=== PATIENT | male | born 2000 | race Caucasian/White ===

== ENCOUNTER 2024-08-09 02:08 | Emergency (ER) | payer MEDICAID, SELFPAY ==
[2024-08-09 02:09] VITALS: BMI 28.8
[2024-08-09 02:34] VITALS: BP 141/89; PULSE 87; RESP 19; TEMP 37.1; O2SAT 97
--- NOTE | 2024-08-09 02:36 | PD.EDRME ---
Rapid Medical Screening Exam RME Arrival date/time: 08/09/24 02:08 24 year old male present to Ed for c/o of RUQ for 1 day I have greeted and performed a focused initial assessment of this patient. A comprehensive ED assessment and evaluation of the patient, analysis of all test results, and completion of the medical decision making process will be conducted by additional ED providers. Chief Complaint: Abdominal Pain Time Seen by Provider: 08/09/24 02:28 Vital signs: Vital Signs Temperature 98.7 F 08/09/24 02:34 Pulse Rate 87 08/09/24 02:34 Respiratory Rate 19 08/09/24 02:34 Blood Pressure 141/89 H 08/09/24 02:34 Pulse Oximetry (%) 97 08/09/24 02:34 Oxygen Delivery Method Room Air 08/09/24 02:34
[2024-08-09] MEDS: ONDANSETRON ODT 4 MG TABRAP PO (02:54)
[2024-08-09 03:03] LABS: Basophils % (Auto) 0 % (0-2.5); Eosinophils # (Auto) 0.2 Thou/mm3 (0.0-0.5); Eosinophils % (Auto) 2 % (0-10); Hemoglobin 15.4 g/dL (13.5-16.0); Immature Granulocytes % (Auto) 0 % (0-0); Immature Granulocytes Auto 0.03 Thou/mm3 (0.00-0.00); Lymphocytes # (Auto) 2.7 Thou/mm3 (1.0-4.8); Lymphocytes % (Auto) 40 % (10-50); Mean Corpuscular Hemoglobin 29.5 pg (25.0-35.0); Mean Corpuscular Volume 84 fL (80-100); Monocytes # (Auto) 0.6 Thou/mm3 (0.0-0.8); Monocytes % (Auto) 8 % (0-12); Neutrophils # (Auto) 3.4 Thou/mm3 (1.8-7.7); Neutrophils % (Auto) 50 % (37-80); Nucleated Red Blood Cell % 0 /100 WBC (0); Platelet Count 201 Thou/mm3 (140-440); RDW Standard Deviation 37.6 fL (35.1-43.9); Red Blood Count 5.22 Miln/mm3 (4.50-5.90); White Blood Count 6.9 Thou/mm3 (3.8-10.6)
[2024-08-09 03:21] LABS: Alanine Aminotransferase 23 U/L (10-49); Albumin, Serum 5.1 gm/dL (3.5-5.0); Albumin/Globulin Ratio 2.2 (1.2-2.2); Alkaline Phosphatase 77 U/L (46-116); Anion Gap 8 (7-16); Aspartate Amino Transferase 11 U/L (0-34); BUN/Creatinine Ratio 18 Ratio (12-20); Bilirubin,Total 0.4 mg/dL (0.3-1.2); Blood Urea Nitrogen 16 mg/dL (9-23); Calcium 10.3 mg/dL (8.3-10.6); Calcium (Corrected) 10.3 mg/dL (8.5-10.1); Carbon Dioxide 29.4 mMol/L (20.0-31.0); Chloride 105 mMol/L (98-107); Creatinine (Component) 0.9 mg/dL (0.6-1.3); Estimated Creatinine Clearance 137.5 mL/min (>60); Globulin 2.3 gm/dL (2.3-3.5); Glucose 115 mg/dL (74-106); Lipase 47 U/L (12-53); Osmolality,Calculated 285 (275-295); Potassium 4.1 mMol/L (3.4-5.1); Sodium 142 mMol/L (136-145); Total Protein 7.4 gm/dL (5.7-8.2); eGFR > 60 See Note
[2024-08-09] MEDS: MG HYD/AL HYD/SIME (Maalox Reg) SUSP 30 ML UDC PO (03:27)
[2024-08-09] MEDS: KETOROLAC INJ 60 MG/2 ML VIAL 30 MG IM (04:44)
--- NOTE | 2024-08-09 05:13 | EDNOTE_ITS ---
ED Abdominal Pain RME/HPI General Chief Complaint: Abdominal Pain Stated complaint: RIGHT UPPER ABDOMEN PAIN Time seen by provider: 08/09/24 02:28 Arrival date/time: 08/09/24 02:08 24 year old male present to emergency room with c/o of ruq pain tonight. denies any similar pain in the past. LOCATION: RUQ SEVERITY: Symptoms are described as being severe with limitations on activities of daily living QUALITY: Symptoms are described as being cramping CONTEXT: The patient is unable to identify any inciting events. DURATION/TIMING: The symptoms started approximately one day ago and have been waxing/waning but always present without ever completely resolving. ASSOCIATED SYMPTOMS: The patient is unable to identify any other associated symptoms. MODIFYING FACTORS: The patient is unable to identify any alleviating or aggravating symptoms. PERTINENT ROS: no fevers, no anorexia, no nausea or vomiting, no diarrhea, no ripping or tearing sensations, no syncope or presyncopal symptoms, denies trauma, denies genital pain REVIEW OF SYSTEMS: See History of Present Illness - with the exception of those mentioned in the history of present illness, all other systems reviewed and reported as negative GENERAL: In general the patient is awake, interactive, in an emergency department gurney. HEAD/EYES/EARS/NOSE/THROAT: normo-cephalic, atraumatic, mucus membranes are moist, anicteric, palpebral conjunctiva is pink, trachea is midline. CARDIOVASCULAR: regular rate and regular rhythm, no murmurs, heart sounds are not distant, strong pulses in all four extremities that are equal and symmetric bilateral upper and lower extremities, normal capillary refill. CHEST/PULMONARY: normal chest rise and fall, good air movement, clear to auscultation bilaterally, normal inspiratory to expiratory ratios without evidence of respiratory distress. NECK: No midline/Paraspinal tenderness, no step off ROM/Strenght intact No Kernig and bruzinski sign. No trauma ABDOMEN: soft, RUQ tenderness, no masses appreciated BACK: normal range of motion without pain. NEUROLOGICAL: cranio-facial features are symmetric, moves all four extremities equally without obvious limitations or weakness. EXTREMITY: no tenderness to palpation over the long bones or large joints of the bilateral upper and lower extremities, no joint swelling, no joint erythema, no signs of trauma, no unilateral leg swelling and no peripheral edema. SKIN: warm, dry, well-perfused, no jaundice, no rash, no telangiectasias or petechia. PSYCH: calm, cooperative, no evidence of psychosis or agitation RME / HPI RME / HPI narrative: 08/09/24 02:08 24 year old male present to Ed for c/o of RUQ for 1 day I have greeted and performed a focused initial assessment of this patient. A comprehensive ED assessment and evaluation of the patient, analysis of all test results, and completion of the medical decision making process will be conducted by additional ED providers. Related Data Home Medications ?Medication ?Instructions ?Recorded ?Confirmed naproxen 500 mg tablet (Naprosyn) 500 mg PO BID PRN Pain 07/28/18 07/28/18 Allergies Allergy/AdvReac Type Severity Reaction Status Date / Time No Known Allergies Allergy Verified 07/28/18 17:05 Course Course Course Narrative: Patient?s symptoms not typical for emergent causes of abdominal pain such as, but not limited to, appendicitis, abdominal aortic aneurysm, surgical biliary disease, pancreatitis, SBO, mesenteric ischemia, serious intra-abdominal bacterial illness, genital torsion. Doubt atypical ACS. Pt tolerating PO. Disposition: Patient will be discharged with strict return precautions and follow up with primary MD within 12-24 hours for further evaluation. Patient understands that this still may have an early presentation of an emergent medical condition such as appendicitis that will require a recheck. Quality Measures none Orders Category Date Time Status CBC Stat Lab 08/09/24 02:58 Completed CMP [Comprehensive Metabolic Panel] Stat Lab 08/09/24 02:58 Completed Lipase Stat Lab 08/09/24 02:58 Completed Ketorolac Inj [Toradol Inj] Med 08/09/24 04:38 Discontinued 30 mg IM X1 ONE Ondansetron Odt [Zofran Odt] Med 08/09/24 02:35 Discontinued 4 mg PO X1 ONE mg Hyd/Al Hyd/Keven Susp [Maalox Susp] Med 08/09/24 03:25 Discontinued 30 ml PO X1 ONE Reevaluation(s) Reevaluation #1: pt feel better with medication Vital Signs Vital signs: Vital Signs Temperature 98.7 F 08/09/24 02:34 Pulse Rate 87 08/09/24 02:34 Respiratory Rate 19 08/09/24 02:34 Blood Pressure 141/89 H 08/09/24 02:34 Pulse Oximetry (%) 97 08/09/24 02:34 Oxygen Delivery Method Room Air 08/09/24 02:34 Abdominal Pain MDM Patient data External records reviewed:: None Clinical information provided by:: patient Social determinants that could affect healthcare access:: none Patient has the following chronic illnesses:: none How is presenting disease/condition affected by chronic disease/condition?: no chronic disease Evaluation data The following diagnostics were reviewed and interpreted by me:: lab results Lab and/or radiology exams considered but not ordered:: none Interpretation Summary: cbc/cmp/lipase wnl Medications / Prescriptions Medications or Prescriptions considered but not ordered:: none Medication administrations:: Medication Administration History Discontinued Medications Al Hydrox/Mg Hydrox/Simethicone (Mg Hyd/Al Hyd/Keven (Maalox Reg) Susp 30 Ml Udc) 30 ml PO X1 ONE Stop: 08/09/24 03:26 Last Admin: 08/09/24 03:27 Dose: 30 ml Documented By: DANIEL Ketorolac Tromethamine (Ketorolac Inj 60 Mg/2 Ml Vial) 30 mg IM X1 ONE Stop: 08/09/24 04:39 Last Admin: 08/09/24 04:44 Dose: 30 mg Documented By: CVL Ondansetron HCl (Ondansetron Odt 4 Mg Tabrap) 4 mg PO X1 ONE; Protocol Stop: 08/09/24 02:36 Last Admin: 08/09/24 02:54 Dose: 4 mg Documented By: DANIEL as stated above Consultations Consultation(s) initiated? (list below): No Diagnosis Differential diagnosis abdominal pain: abdominal pain, calculus of kidney, constipation, gastroenteritis and other (gallstone, uti ) Most likely diagnosis given after review of the tests above:: abd pain Admission Indicated Admission indicated?: not indicated Admission Request Was there a request for admission?: No Disposition Plan Disposition Plan: Discharge Discharge Attestation Discharge Attestation: The patient and all family members were given an opportunity to ask questions and understood the discharge instructions. Discharge instructions specifically effects, indications for sooner follow up or return to the emergency department, and the expected course of current diagnosis. Patient condition: Stable Discharge Plan Plan Patient Disposition: HOME (Self Care) Health Concerns: Follow with PMD as directed Take tylenol or motrin as need Return to ED if sx worsen Prescriptions/Referrals Prescriptions/Med Rec: No Action naproxen [Naprosyn] 500 mg Tablet 500 mg PO BID PRN (Reason: Pain) Problem List Clinical Impression: Abdominal pain Patient/Caregiver Discharge Instructions Education Materials: Abdominal Pain Print Language: [place] Stand Alone Forms: Nathalie Award Info., Patient Portal Info Letter
[2024-08-09 05:16] VITALS: BP 138/76; PULSE 76; RESP 18; TEMP 36.7; O2SAT 99
== END 2024-08-09 05:17 | disposition home or self-care (01) ==
LOC: SERX 05:58
PROVIDERS: Physician Assistant; Emergency Provider Emergency Medicine; PCP Family Medicine
DX: R10.11 Right upper quadrant pain (principal)
CPT/HCPCS: 36415; 80053; 83690; 85025; 96372; 99283; J1885; Q0162; A9270